=== PATIENT | male | born 1980 | race Caucasian/White ===

== ENCOUNTER 2019-10-27 21:49 | Emergency (ER) | payer OTHER, SELFPAY ==
--- NOTE | ~2019-10-27 | XR_ITS ---
EXAMINATION: XR pelvis 1-2V INDICATION: Right groin pain TECHNIQUE: AP view the pelvis is obtained. COMPARISON: None available FINDINGS: Bone alignment is normal. There is no fracture. The bowel gas pattern is normal. IMPRESSION: 1. No acute osseous abnormality. Reviewed, dictated and finalized at location A.
[2019-10-27 21:53] VITALS: BP 141/90; PULSE 61; RESP 20; TEMP 36.7; O2SAT 99
[2019-10-27] MEDS: KETOROLAC (*BKC) 60 MG/2 ML VIAL IM (22:42)
[2019-10-28 00:05] LABS: Add Urine Microscopic? YES; Appearance Urine Clear (Clear); Bilirubin Urine Negative (Negative); Blood Urine Negative (Negative); Color Urine Yellow (Yellow); Glucose Urine UA Negative (Negative); Ketones Urine Negative (Negative); Leukocyte Esterase Ur Negative LEU/UL (Negative); Mucus Urine Few /lpf; Nitrate Urine Negative (Negative); Protein Urine Negative (Negative); RBC Urine 0-2 /hpf (0-2); Squamous Epithelial Cell Urine Rare /hpf (Few); WBC Urine 0-3 /hpf
[2019-10-28 00:07] LABS: Specific Grav Ur 1.031 (1.001-1.035)
--- NOTE | 2019-10-28 00:18 | ED.GENADULT ---
HPI - General Adult General Chief complaint: Unspecified Stated complaint: SCROTUM PAIN Time Seen by Provider: 10/27/19 22:03 History of Present Illness HPI narrative: Patient is a 39-year-old male who presents ER with pain in his perineum. Sudden onset after getting up out of a couch. Its worse when he ate goes from sitting to standing or when he is walking or moving up stairs. No pain when he is lying down or when he palpates the area. No swelling or redness. No actual pain in his testicle or his penis. No urinary frequency/urgency/dysuria. No rectal pain or diarrhea. Has not had similar symptoms before. Took ibuprofen without relief. Related Data Allergies Allergy/AdvReac Type Severity Reaction Status Date / Time Penicillins Allergy Rash Verified 10/27/19 22:41 Review of Systems Constitutional: Constitutional: Denies chills, Denies fever(s) and Denies weakness Gastrointestinal: Gastrointestinal: Denies abdominal pain, Denies nausea and Denies vomiting Genitourinary: Genitourinary: Denies hematuria, Denies dysuria, Denies testicular pain and Denies urinary frequency PMFSH Past Medical History Medical History (Updated 10/28/19 @ 00:23 by Alden Baldwin MD) No pertinent past medical history Surgical History Surgical History (Updated 10/28/19 @ 00:19 by Alden Baldwin MD) No pertinent past surgical history Social History Social History (Updated 10/28/19 @ 00:19 by Alden Baldwin MD) Smoking status: Never smoker Exam Narrative: Exam Narrative: GENERAL: Well-appearing, well-nourished, and in no acute distress. HEAD: Normocephalic, atraumatic. ENT: Mucous membranes moist. ABDOMEN/: Soft, nontender, nondistended, normal active bowel sounds. No tenderness or swelling is reproduced in the perineal area. Normal-appearing scrotum. EXTREMITIES: Normal range of motion. No edema. SKIN: Warm, dry, no rash. NEURO: Alert and oriented x3. Course Course Emergency Course: Suspect patient has a muscle strain in a tender region of his anatomy. There is no evidence of infection. Urine clean. No testicular pain, this is not consistent with torsion. Patient received Toradol resolved pain. Vital Signs Vital signs: Vital Signs Temperature 98.1 F 10/27/19 21:53 Pulse Rate 61 10/27/19 21:53 Respiratory Rate 20 10/27/19 21:53 Blood Pressure 141/90 H 10/27/19 21:53 Pulse Oximetry 99 10/27/19 21:53 Temperature 98.1 F 10/27/19 21:53 Pulse Rate 61 10/27/19 21:53 Respiratory Rate 20 10/27/19 21:53 Blood Pressure 141/90 H 10/27/19 21:53 Pulse Oximetry 99 10/27/19 21:53 Medical Decision Making Vital Signs Vital Signs: Vital Signs Temperature 98.1 F 10/27/19 21:53 Pulse Rate 61 10/27/19 21:53 Respiratory Rate 20 10/27/19 21:53 Blood Pressure 141/90 H 10/27/19 21:53 Pulse Oximetry 99 10/27/19 21:53 Temperature 98.1 F 10/27/19 21:53 Pulse Rate 61 10/27/19 21:53 Respiratory Rate 10/27/19 21:53 Blood Pressure 141/90 H 10/27/19 21:53 Pulse Oximetry 99 10/27/19 21:53 Lab Data Labs: Lab Results 10/27/19 Range/Units 23:50 Urine Color Yellow (Yellow) Urine Appearance Clear (Clear) Urine pH 5.0 (5.0-9.0) Ur Specific [place] 1.031 (1.001-1.035) Urine Protein Negative (Negative) mg/dL Urine Glucose (UA) Negative (Negative) mg/dL Urine Ketones Negative (Negative) mg/dL Ur Blood (Man) Negative (Negative) Urine Nitrate Negative (Negative) Urine Bilirubin Negative (Negative) Urine Urobilinogen 2.0 H (<2.0) mg/dL Leukocyte Esterase Rfl Negative (Negative) SHIRA/UL Urine RBC 0-2 (0-2) /hpf Urine WBC 0-3 /hpf Ur Squamous Epith Cells Rare (Few) /hpf Urine Mucus Few H /lpf Imaging Data My impression: XR Pelvis: Negative Discharge Plan Discharge Clinical Impression: Muscle strain Patient Disposition: Home, Self-Care Condition: Stable Instructions: Groin Strain
[2019-10-28 00:32] VITALS: BP 117/87; PULSE 63; RESP 18; O2SAT 98
== END 2019-10-28 01:01 | disposition home or self-care (01) ==
PROVIDERS: Emergency Provider Emergency Medicine
DX: S39.013A Strain of muscle, fascia and tendon of pelvis, initial encounter (principal); X58.XXXA Exposure to other specified factors, initial encounter
CPT/HCPCS: 72170; 81001; 96372; 99283; J1885

== ENCOUNTER 2020-06-16 08:13 | Emergency (ER) | payer OTHER, SELFPAY ==
--- NOTE | ~2020-06-16 | XR_ITS ---
EXAMINATION: XR knee LT min 4V EXAM DATE: 06/16/2020 08:42 INDICATION: Pain with Injury , left knee medial pain, h/o ACL reconstruction. TECHNIQUE: Left knee frontal, crosstable lateral, orthogonal oblique projections for interpretation. There is no prior study for comparison. FINDINGS: Anchors from left anterior cruciate ligament repair. Well-corticated round ossifications posteriorly which could be joint bodies. There is mild to moderate left knee osteoarthritis, could be primary or secondary to patient's prior injury. There are no acute left knee fractures or dislocations identified. There is no subcutaneous gas. No joint effusion. There are no radiopaque foreign bodies. IMPRESSION: 1. Surgical changes. 2. Suspicion of joint bodies. 3. Mild to moderate osteoarthritis. Reviewed, dictated and finalized at location A.
[2020-06-16 08:21] VITALS: BP 131/92; PULSE 81; RESP 18; TEMP 36.1; O2SAT 100
--- NOTE | 2020-06-16 08:34 | ED.LOWEXIN ---
HPI - Extremity Injury (Lower) General Chief Complaint: Extremity Injury, Lower Stated Complaint: knee injury Time Seen by Provider: 06/16/20 08:27 Source: patient Mode of arrival: ambulatory Limitations: no limitations History of Present Illness HPI Narrative: Patient is a 39-year-old male complaining of left knee pain, 6 out of 10, dull, that started yesterday after he injured it while working in his yard. Patient states that he was seen at an urgent care yesterday and x-ray done of his left knee but was not satisfied with the care he received. Patient was told that the x-ray was negative for any fracture or dislocation. Patient denies any other injuries. Patient able to ambulate. Related Data Allergies Allergy/AdvReac Type Severity Reaction Status Date / Time Penicillins Allergy Rash Verified 06/16/20 08:26 amoxicillin AdvReac Hives Verified 06/16/20 08:26 Review of Systems Review of Systems: All systems reviewed & are unremarkable except as noted in HPI and below PMFSH Past Medical History Medical History (Updated 06/16/20 @ 09:17 by Guanaco Coreas MD) No pertinent past medical history Surgical History Surgical History (Updated 10/28/19 @ 00:19 by Alden Baldwin MD) No pertinent past surgical history Social History Social History (Updated 10/28/19 @ 00:19 by Alden Baldwin MD) Smoking status: Never smoker Comments Past medical history: None Family history: Noncontributory Social history: Non-smoker no EtOH or drug use. Exam Const: General: no acute distress and alert Orientation/consciousness: patient oriented x3 HENMT: Head: normal to inspection Eyes: Conjunctivae: conjunctivae normal Neck: Neck: normal visual inspection Resp: Effort & Inspection: normal respiratory effort Extrem: Other: No knee deformity or significant swelling. Pain on palpation of the left knee, lateral aspect, pain on range of motion, full range of motion of the left knee. Negative for anterior and posterior drawer sign. Neurovascular is intact bilateral lower extremities Course Vital Signs Vital signs: Vital Signs Temperature 36.1 C L 06/16/20 08:21 Pulse Rate 81 06/16/20 08:21 Respiratory Rate 18 06/16/20 08:21 Blood Pressure 131/92 H 06/16/20 08:21 Pulse Oximetry 100 06/16/20 08:21 Temperature 36.1 C L 06/16/20 08:21 Pulse Rate 81 06/16/20 08:21 Respiratory Rate 18 06/16/20 08:21 Blood Pressure 131/92 H 06/16/20 08:21 Pulse Oximetry 100 06/16/20 08:21 MDM - Extremity Injury (Lower) Differential Diagnosis Differential diagnosis: Likely other (Knee strain, knee sprain, collateral ligament strain, fracture, dislocation) Discharge Plan Discharge Clinical Impression: Knee sprain Qualifiers: Encounter type: initial encounter Involved ligament of knee: unspecified ligament Laterality: left Qualified Code(s): S83.92XA - Sprain of unspecified site of left knee, initial encounter Patient Disposition: Home, Self-Care Condition: Stable Instructions: Knee Sprain (ED) Additional Instructions: Follow-up with your primary care physician in 1 week Prescriptions: No Action naproxen 500 mg tablet 500 mg PO BID Qty: 20 RF: 0 Follow-up/Referrals: PHYSICIAN,TRANSPORTATION ANALYST [Primary Care Provider] - Time of Disposition: 09:18
== END 2020-06-16 09:32 | disposition home or self-care (01) ==
PROVIDERS: Emergency Provider Emergency Medicine
DX: S83.92XA Sprain of unspecified site of left knee, initial encounter (principal); X58.XXXA Exposure to other specified factors, initial encounter
CPT/HCPCS: 73564; 99283